=== PATIENT | male | born 1985 | race Hispanic/Latino ===

== ENCOUNTER 2017-08-16 09:03 | Emergency (ER) | payer SELFPAY ==
[2017-08-16] MEDS ORDERED: Lidocaine 1% PF 5 ML VIAL ONE (09:51)
[2017-08-16] MEDS ORDERED: Adacel (T-DAP) 0.5 ML VIAL ONE (09:52)
[2017-08-16] MEDS ORDERED: Bacitracin Zinc 1 Packet ONE (10:12)
[2017-08-16] MEDS ORDERED: HYDROcodone/Acetaminophen 5/325 mg Tablet ONE (10:16)
--- NOTE | 2017-08-16 10:59 | RAD ---
LEFT MIDDLE FINGER THREE VIEWS: History: 32-year-old male with history of laceration to finger. FINDINGS: Soft tissue injury to the distal finger with extensive bandage material. No evidence of an overt bony fracture. IMPRESSION: Soft tissue injury to distal finger with bandage material without acute fracture. No definite metalli c density foreign body. POS: [facility]
== END 2017-08-16 10:54 | disposition home or self-care (01) ==
LOC: ERS 09:03
DX: S61.215A Laceration without foreign body of left ring finger without damage to nail, initial encounter (principal); Z79.899 Other long term (current) drug therapy; W26.0XXA Contact with knife, initial encounter
CPT/HCPCS: 90471; 90715; J2001

== ENCOUNTER 2018-01-18 14:48 | Emergency (ER) | payer BC, OTHER ==
[2018-01-18] MEDS ORDERED: Fluorescein Opthalmic Strip ONE (15:03)
[2018-01-18] MEDS ORDERED: Proparacaine 0.5% Opth 15 ML BOT ONE (15:03)
== END 2018-01-18 15:20 | disposition home or self-care (01) ==
LOC: ERS 14:48
DX: S05.02XA Injury of conjunctiva and corneal abrasion without foreign body, left eye, initial encounter (principal); S05.01XA Injury of conjunctiva and corneal abrasion without foreign body, right eye, initial encounter; W89.8XXA Exposure to other man-made visible and ultraviolet light, initial encounter
CPT/HCPCS: 99283

== ENCOUNTER 2020-09-23 15:02 | Outpatient (CLI) | payer OTHER | END 2020-09-23 15:03 | disposition home or self-care (01) | LOC: BICRAD 15:02 | PROVIDERS: ATTEND Family Medicine | DX: M25.561 Pain in right knee (principal); M25.562 Pain in left knee ==